=== PATIENT | male | born 1975 | race Caucasian/White ===

== ENCOUNTER → 2020-01-25 | Outpatient (CLI) | payer OTHER ==
--- NOTE | 2020-01-29 12:41 | HM ---
HOLTER MONITOR REPORT The patient was monitored for 24 hours. CLINICAL INFORMATION: Baseline rhythm is sinus mechanism with first-degree AV block. The average rate is 78 beats per minute, minimum 49, maximum 136 beats per minute. Ventricular ectopic activity was present in the form of rare single PVCs. Supraventricular ectopic activity was present in the form of rare single PACs. The patient had one episode of 4 complex ventricular tachycardia at slow rate. Symptoms of palpitation correlated at times with the single PVCs. CONCLUSION: 1. Sinus mechanism baseline rhythm. 2. Rare single PVCs with one 4 complex and a slow rate of 102 beats per minute. 3. Rare supraventricular ectopic activity. 4. Symptoms of palpitation correlated at times with single PVCs. MMODL / IJN: [id number] /
== END | disposition home or self-care (01) ==
LOC: RADECHMAIN 12:20
PROVIDERS: ATTEND Family Medicine
DX: R00.2 Palpitations (principal)
CPT/HCPCS: 93225; 93226